=== PATIENT | female | born 1950 | race Caucasian/White ===

== ENCOUNTER → 2017-02-24 | Outpatient (CLI) | payer MEDICARE, BC ==
[~2017-02-24] MED LIST: ARIMIDEX1 MG PO; ASPIR-LOW81 MG PO; ASPIRIN E.C. 8181 MG PO; AVALIDE PO; AVAPRO300 MG PO; CALCIUM CARB W/1 TA1 PO; CALCIUM CARBON500 M1 PO; FOSAMAX 70MG TA70 MG PO; HYZAAR 25 MG-101 TAB PO; KEPPRA 500MG500 MG PO; MULTIPLE VITAMI1 TAB PO; MVI PO; NEXIUM40 MG PO; PREMPRO 0.625/21 TAB PO; SYMAX PO; TRIAVIL PO; VITAMIN B12 PO; VITAMIN C BUFF500 MG PO; VITAMIN C500 MG PO; VITAMIN E ACET100 ML PO; VITAMIN E200 I1 PO
== END ==
LOC: COL.RAD 13:52
DX: R56.9 Unspecified convulsions (principal)
CPT/HCPCS: Q9967

== ENCOUNTER 2019-01-11 14:44 | Emergency (ER) | payer MEDICARE, BC ==
[~2019-01-11] VITALS: Ht 160 cm; Wt 68.2 kg
[2019-01-11] MEDS ORDERED: TRIAVIL PO (14:59)
[2019-01-11] MEDS ORDERED: CEPHALEXIN500 M1 PO (16:42)
[2019-01-11 16:56] VITALS: PULSE 98; TEMP 97.8
[2019-01-11 17:14] VITALS: BP 184/106
== END 2019-01-11 17:20 | disposition home or self-care (01) ==
LOC: COL.ER 14:44
DX: R04.0 Epistaxis (principal); I10 Essential (primary) hypertension; Z85.3 Personal history of malignant neoplasm of breast; Z95.0 Presence of cardiac pacemaker; Z79.82 Long term (current) use of aspirin

== ENCOUNTER → 2020-03-09 | Outpatient (CLI) | payer MEDICARE, BC ==
[~2020-03-09] MED LIST changes: +CEPHALEXIN500 M1 PO
== END ==
LOC: MC.RAD 12:20
DX: Z12.31 Encounter for screening mammogram for malignant neoplasm of breast (principal); D05.12 Intraductal carcinoma in situ of left breast

== ENCOUNTER → 2022-04-05 | Outpatient (CLI) | payer MEDICARE, BC | LOC: MC.RAD 03-10 11:00 | DX: Z12.31 Encounter for screening mammogram for malignant neoplasm of breast (principal) ==

== ENCOUNTER → 2024-05-17 | Outpatient (CLI) | payer MEDICARE, BC | LOC: MC.RAD 12:57 | DX: Z12.31 Encounter for screening mammogram for malignant neoplasm of breast (principal) ==